=== PATIENT | male | born 1950 | race Caucasian/White ===

== ENCOUNTER 2020-07-09 02:39 | Outpatient (CLI) | payer OTHER, SELFPAY ==
[2020-07-16 22:58] LABS: DPYD Predicted Toxicity Risk Normal
== END 2020-07-09 02:40 | disposition home or self-care (01) ==
LOC: LBO 02:39
PROVIDERS: PCP Neuromusculoskeletal Medicine & OMM; Visit Provider Internal Medicine Hematology & Oncology
DX: C20 Malignant neoplasm of rectum (principal); T45.1X5A Adverse effect of antineoplastic and immunosuppressive drugs, initial encounter
CPT/HCPCS: 36415; 81232

== ENCOUNTER 2020-07-13 01:55 | Outpatient (CLI) | payer OTHER, SELFPAY ==
[2020-07-13 11:25] LABS: Abs Immature Grans 0.04 10^3/uL (0.0-0.06); Absolute Basophil Count 0.04 10^3/uL (0.0-0.2); Absolute Eosinophil Count 0.34 10^3/uL (0.0-0.7); Absolute Lymphocyte Count 2.02 10^3/uL (1.2-3.4); Absolute Monocyte Count 0.88 10^3/uL (0.1-0.8); Absolute Neutrophil Count 4.08 10^3/uL (1.2-6.7); Basophils % 0.5; Eosinophils % 4.6; HCT 41.6 % (40.0-50.0); HGB 13.8 g/dL (13.5-17.5); Immature Grans % 0.5; Lymphocytes % 27.3; MCH 29.1 pg (27.0-33.0); MCHC 33.2 % (32.0-36.0); MCV 87.8 fL (80-95); MPV 8.9 fL (8.0-11.0); Monocytes % 11.9; Neutrophils % 55.2; Nucleated RBC 0 %; Platelet Count 286 10^3/uL (130-400); RBC 4.74 10^6/uL (4.36-5.78); RDW 13.8 % (11.8-14.1); RDW-SD 44.5 fL
[2020-07-13 11:42] LABS: Albumin 3.3 g/dL (3.4-5.0); Alkaline Phosphatase 94 U/L (46-116); Anion Gap 9.7 mmol/L (3-11); BUN 23 mg/dL (7-18); Bilirubin, Total 0.5 mg/dL (0.2-1.0); CO2 23.3 mmol/L (21.0-32.0); CREATININE 1.3 mg/dL (0.70-1.30); Calcium 8.4 mg/dL (8.5-10.1); Chloride 107 mmol/L (98-107); Estimated GFR 54.26 (mL/min/1.73m2); Glucose 128 mg/dL (74-106); Potassium 4.2 mmol/L (3.5-5.1); Sodium 140 mmol/L (136-145); Total Protein 7.5 g/dL (6.4-8.2)
[2020-07-13 12:03] LABS: ALT 58 U/L (16-63); AST 27 U/L (15-37)
== END 2020-07-13 01:56 | disposition home or self-care (01) ==
LOC: LBO 01:59
PROVIDERS: PCP Neuromusculoskeletal Medicine & OMM; Visit Provider Internal Medicine Hematology & Oncology
DX: C20 Malignant neoplasm of rectum (principal)
CPT/HCPCS: 36415; 80053; 81232; 85025

== ENCOUNTER 2020-07-20 11:02 | Outpatient (CLI) | payer OTHER, SELFPAY ==
[2020-07-20 11:29] LABS: Abs Immature Grans 0.02 10^3/uL (0.0-0.06); Absolute Basophil Count 0.03 10^3/uL (0.0-0.2); Absolute Eosinophil Count 0.28 10^3/uL (0.0-0.7); Absolute Lymphocyte Count 1.71 10^3/uL (1.2-3.4); Absolute Monocyte Count 0.96 10^3/uL (0.1-0.8); Absolute Neutrophil Count 4.08 10^3/uL (1.2-6.7); Basophils % 0.4; HCT 40.1 % (40.0-50.0); Immature Grans % 0.3; Lymphocytes % 24.2; MCH 28.3 pg (27.0-33.0); MCHC 32.4 % (32.0-36.0); MCV 87.4 fL (80-95); MPV 9.4 fL (8.0-11.0); Monocytes % 13.6; Neutrophils % 57.5; Nucleated RBC 0 %; Platelet Count 243 10^3/uL (130-400); RBC 4.59 10^6/uL (4.36-5.78); RDW 13.7 % (11.8-14.1); RDW-SD 44.2 fL; WBC 7.08 10^3/uL (4.4-10.8)
[2020-07-20 11:39] LABS: ALT 46 U/L (16-63); AST 21 U/L (15-37); Albumin 3.5 g/dL (3.4-5.0); Alkaline Phosphatase 84 U/L (46-116); Anion Gap 9.2 mmol/L (3-11); BUN 27 mg/dL (7-18); Bilirubin, Total 0.6 mg/dL (0.2-1.0); CO2 24.8 mmol/L (21.0-32.0); CREATININE 1.1 mg/dL (0.70-1.30); Calcium 8.6 mg/dL (8.5-10.1); Chloride 104 mmol/L (98-107); Glucose 89 mg/dL (74-106); Potassium 4.5 mmol/L (3.5-5.1); Sodium 138 mmol/L (136-145); Total Protein 7.6 g/dL (6.4-8.2)
== END 2020-07-20 11:03 | disposition home or self-care (01) ==
LOC: LBO 11:03
PROVIDERS: PCP Neuromusculoskeletal Medicine & OMM; Visit Provider Internal Medicine Hematology & Oncology
DX: C20 Malignant neoplasm of rectum (principal)
CPT/HCPCS: 36415; 80053; 85025

== ENCOUNTER 2020-07-27 03:16 | Outpatient (CLI) | payer OTHER, SELFPAY ==
[2020-07-27 08:03] LABS: Abs Immature Grans 0.01 10^3/uL (0.0-0.06); Absolute Basophil Count 0.01 10^3/uL (0.0-0.2); Absolute Eosinophil Count 0.19 10^3/uL (0.0-0.7); Absolute Lymphocyte Count 0.73 10^3/uL (1.2-3.4); Absolute Neutrophil Count 2.77 10^3/uL (1.2-6.7); Basophils % 0.2; Eosinophils % 4.2; HCT 38.9 % (40.0-50.0); HGB 12.9 g/dL (13.5-17.5); Immature Grans % 0.2; Lymphocytes % 16.2; MCH 28.7 pg (27.0-33.0); MCHC 33.2 % (32.0-36.0); MCV 86.4 fL (80-95); Monocytes % 17.7; Neutrophils % 61.5; Nucleated RBC 0 %; Platelet Count 178 10^3/uL (130-400); RDW 13.7 % (11.8-14.1); RDW-SD 42.5 fL; WBC 4.51 10^3/uL (4.4-10.8)
[2020-07-27 08:15] LABS: ALT 37 U/L (16-63); AST 18 U/L (15-37); Albumin 3.5 g/dL (3.4-5.0); Alkaline Phosphatase 82 U/L (46-116); Anion Gap 8.8 mmol/L (3-11); BUN 27 mg/dL (7-18); CO2 26.2 mmol/L (21.0-32.0); CREATININE 1.4 mg/dL (0.70-1.30); Calcium 8.5 mg/dL (8.5-10.1); Chloride 104 mmol/L (98-107); Estimated GFR 49.82 (mL/min/1.73m2); Glucose 107 mg/dL (74-106); Potassium 4.4 mmol/L (3.5-5.1); Sodium 139 mmol/L (136-145); Total Protein 7.4 g/dL (6.4-8.2)
== END 2020-07-27 03:17 | disposition home or self-care (01) ==
LOC: LBO 03:16
PROVIDERS: PCP Neuromusculoskeletal Medicine & OMM; Visit Provider Internal Medicine Hematology & Oncology
DX: C20 Malignant neoplasm of rectum (principal)
CPT/HCPCS: 36415; 80053; 85025

== ENCOUNTER 2020-08-03 02:17 | Outpatient (CLI) | payer OTHER, SELFPAY ==
[2020-08-03 13:23] LABS: Abs Immature Grans 0.02 10^3/uL (0.0-0.06); Absolute Basophil Count 0.01 10^3/uL (0.0-0.2); Absolute Lymphocyte Count 0.47 10^3/uL (1.2-3.4); Absolute Monocyte Count 0.79 10^3/uL (0.1-0.8); Absolute Neutrophil Count 4.97 10^3/uL (1.2-6.7); Basophils % 0.2; Eosinophils % 4.6; HCT 38.2 % (40.0-50.0); HGB 12.8 g/dL (13.5-17.5); Immature Grans % 0.3; Lymphocytes % 7.2; MCHC 33.5 % (32.0-36.0); MCV 86.6 fL (80-95); Neutrophils % 75.7; Nucleated RBC 0 %; Platelet Count 145 10^3/uL (130-400); RBC 4.41 10^6/uL (4.36-5.78); RDW 14.3 % (11.8-14.1); RDW-SD 42.7 fL; WBC 6.56 10^3/uL (4.4-10.8)
[2020-08-03 15:06] LABS: ALT 35 U/L (16-63); AST 19 U/L (15-37); Albumin 3.8 g/dL (3.4-5.0); Alkaline Phosphatase 85 U/L (46-116); Anion Gap 8.9 mmol/L (3-11); BUN 21 mg/dL (7-18); Bilirubin, Total 1.2 mg/dL (0.2-1.0); CO2 25.1 mmol/L (21.0-32.0); CREATININE 1.1 mg/dL (0.70-1.30); Calcium 8.6 mg/dL (8.5-10.1); Chloride 105 mmol/L (98-107); Glucose 91 mg/dL (74-106); Sodium 139 mmol/L (136-145); Total Protein 7.3 g/dL (6.4-8.2)
== END 2020-08-03 02:18 | disposition home or self-care (01) ==
LOC: LBO 02:17
PROVIDERS: PCP Neuromusculoskeletal Medicine & OMM; Visit Provider Internal Medicine Hematology & Oncology
DX: C20 Malignant neoplasm of rectum (principal)
CPT/HCPCS: 36415; 80053; 85025

== ENCOUNTER 2020-08-10 01:05 | Outpatient (CLI) | payer OTHER, SELFPAY ==
[2020-08-10 13:08] LABS: Abs Immature Grans 0.03 10^3/uL (0.0-0.06); Absolute Basophil Count 0.02 10^3/uL (0.0-0.2); Absolute Lymphocyte Count 0.38 10^3/uL (1.2-3.4); Absolute Neutrophil Count 3.55 10^3/uL (1.2-6.7); Basophils % 0.4; Eosinophils % 11.2; HCT 35.5 % (40.0-50.0); HGB 12.2 g/dL (13.5-17.5); Immature Grans % 0.6; Lymphocytes % 7.1; MCHC 34.4 % (32.0-36.0); MCV 84.5 fL (80-95); MPV 8.8 fL (8.0-11.0); Monocytes % 14.9; Neutrophils % 65.8; Nucleated RBC 0 %; Platelet Count 167 10^3/uL (130-400); RDW 15.5 % (11.8-14.1); RDW-SD 45.2 fL; WBC 5.38 10^3/uL (4.4-10.8)
[2020-08-10 13:20] LABS: ALT 45 U/L (16-63); AST 26 U/L (15-37); Albumin 3.5 g/dL (3.4-5.0); Alkaline Phosphatase 79 U/L (46-116); Anion Gap 11.5 mmol/L (3-11); BUN 20 mg/dL (7-18); Bilirubin, Total 0.9 mg/dL (0.2-1.0); CO2 21.5 mmol/L (21.0-32.0); CREATININE 1.1 mg/dL (0.70-1.30); Calcium 8.4 mg/dL (8.5-10.1); Chloride 105 mmol/L (98-107); Glucose 96 mg/dL (74-106); Potassium 3.5 mmol/L (3.5-5.1); Sodium 138 mmol/L (136-145); Total Protein 7.2 g/dL (6.4-8.2)
== END 2020-08-10 01:06 | disposition home or self-care (01) ==
LOC: LBO 01:06
PROVIDERS: PCP Neuromusculoskeletal Medicine & OMM; Visit Provider Internal Medicine Hematology & Oncology
DX: C20 Malignant neoplasm of rectum (principal)
CPT/HCPCS: 36415; 80053; 85025

== ENCOUNTER 2020-08-17 03:52 | Outpatient (CLI) | payer OTHER, SELFPAY ==
[2020-08-17 13:25] LABS: Abs Immature Grans 0.01 10^3/uL (0.0-0.06); Absolute Basophil Count 0.02 10^3/uL (0.0-0.2); Absolute Eosinophil Count 0.45 10^3/uL (0.0-0.7); Absolute Lymphocyte Count 0.23 10^3/uL (1.2-3.4); Absolute Monocyte Count 1.45 10^3/uL (0.1-0.8); Absolute Neutrophil Count 3.11 10^3/uL (1.2-6.7); Basophils % 0.4; Eosinophils % 8.5; HCT 35.3 % (40.0-50.0); Immature Grans % 0.2; Lymphocytes % 4.4; MCH 29.6 pg (27.0-33.0); MCV 87.2 fL (80-95); MPV 8.4 fL (8.0-11.0); Monocytes % 27.5; Nucleated RBC 0 %; Platelet Count 192 10^3/uL (130-400); RBC 4.05 10^6/uL (4.36-5.78); RDW 15.9 % (11.8-14.1); RDW-SD 49.6 fL; WBC 5.27 10^3/uL (4.4-10.8)
[2020-08-17 13:46] LABS: ALT 27 U/L (16-63); AST 18 U/L (15-37); Albumin 3.2 g/dL (3.4-5.0); Alkaline Phosphatase 78 U/L (46-116); Anion Gap 11.9 mmol/L (3-11); BUN 19 mg/dL (7-18); Bilirubin, Total 1.2 mg/dL (0.2-1.0); CO2 21.1 mmol/L (21.0-32.0); CREATININE 1.2 mg/dL (0.70-1.30); Calcium 8.2 mg/dL (8.5-10.1); Chloride 102 mmol/L (98-107); Estimated GFR 59.51 (mL/min/1.73m2); Glucose 104 mg/dL (74-106); Potassium 3.4 mmol/L (3.5-5.1); Sodium 135 mmol/L (136-145); Total Protein 6.9 g/dL (6.4-8.2)
== END 2020-08-17 03:53 | disposition home or self-care (01) ==
LOC: LBO 03:52
PROVIDERS: PCP Neuromusculoskeletal Medicine & OMM; Visit Provider Internal Medicine Hematology & Oncology
DX: C20 Malignant neoplasm of rectum (principal)
CPT/HCPCS: 36415; 80053; 85025

== ENCOUNTER 2020-08-24 03:02 | Outpatient (CLI) | payer OTHER, SELFPAY ==
[2020-08-24 13:44] LABS: Abs Immature Grans 0.04 10^3/uL (0.0-0.06); Absolute Basophil Count 0.01 10^3/uL (0.0-0.2); Absolute Lymphocyte Count 0.36 10^3/uL (1.2-3.4); Absolute Monocyte Count 1.41 10^3/uL (0.1-0.8); Absolute Neutrophil Count 5.25 10^3/uL (1.2-6.7); Basophils % 0.1; HCT 32.9 % (40.0-50.0); HGB 11.2 g/dL (13.5-17.5); Immature Grans % 0.6; Lymphocytes % 5.1; MCH 29.9 pg (27.0-33.0); MCV 87.7 fL (80-95); MPV 8.6 fL (8.0-11.0); Monocytes % 19.9; Neutrophils % 74.3; Nucleated RBC 0 %; Platelet Count 251 10^3/uL (130-400); RBC 3.75 10^6/uL (4.36-5.78); RDW-SD 53.4 fL; WBC 7.07 10^3/uL (4.4-10.8)
[2020-08-24 13:58] LABS: ALT 54 U/L (16-63); AST 61 U/L (15-37); Alkaline Phosphatase 71 U/L (46-116); BUN 29 mg/dL (7-18); Bilirubin, Total 0.8 mg/dL (0.2-1.0); CREATININE 1.3 mg/dL (0.70-1.30); Calcium 8.6 mg/dL (8.5-10.1); Chloride 108 mmol/L (98-107); Estimated GFR 54.26 (mL/min/1.73m2); Glucose 88 mg/dL (74-106); Potassium 3.1 mmol/L (3.5-5.1); Sodium 142 mmol/L (136-145); Total Protein 6.6 g/dL (6.4-8.2)
== END 2020-08-24 03:03 | disposition home or self-care (01) ==
LOC: LBO 03:02
PROVIDERS: PCP Neuromusculoskeletal Medicine & OMM; Visit Provider Internal Medicine Hematology & Oncology
DX: C20 Malignant neoplasm of rectum (principal)
CPT/HCPCS: 36415; 80053; 85025

== ENCOUNTER 2020-08-31 08:24 | Outpatient (CLI) | payer OTHER, SELFPAY ==
[2020-08-31 09:22] LABS: Abs Immature Grans 0.01 10^3/uL (0.0-0.06); Absolute Basophil Count 0.02 10^3/uL (0.0-0.2); Absolute Lymphocyte Count 0.32 10^3/uL (1.2-3.4); Absolute Monocyte Count 0.82 10^3/uL (0.1-0.8); Absolute Neutrophil Count 3.85 10^3/uL (1.2-6.7); Basophils % 0.4; Eosinophils % 7.4; HCT 34.1 % (40.0-50.0); HGB 11.1 g/dL (13.5-17.5); Immature Grans % 0.2; Lymphocytes % 5.9; MCH 29.4 pg (27.0-33.0); MCHC 32.6 % (32.0-36.0); MCV 90.2 fL (80-95); Monocytes % 15.1; Nucleated RBC 0 %; Platelet Count 231 10^3/uL (130-400); RBC 3.78 10^6/uL (4.36-5.78); RDW 17.6 % (11.8-14.1); RDW-SD 57.6 fL; WBC 5.42 10^3/uL (4.4-10.8)
[2020-08-31 09:34] LABS: ALT 43 U/L (16-63); AST 27 U/L (15-37); Alkaline Phosphatase 83 U/L (46-116); Anion Gap 10.7 mmol/L (3-11); BUN 10 mg/dL (7-18); CO2 23.3 mmol/L (21.0-32.0); CREATININE 1.1 mg/dL (0.70-1.30); Calcium 8.4 mg/dL (8.5-10.1); Chloride 108 mmol/L (98-107); Glucose 87 mg/dL (74-106); Potassium 3.7 mmol/L (3.5-5.1); Sodium 142 mmol/L (136-145); Total Protein 6.6 g/dL (6.4-8.2)
== END 2020-08-31 08:25 | disposition home or self-care (01) ==
LOC: LBO 08:33
PROVIDERS: PCP Neuromusculoskeletal Medicine & OMM; Visit Provider Internal Medicine Hematology & Oncology
DX: C20 Malignant neoplasm of rectum (principal)
CPT/HCPCS: 36415; 80053; 85025

== ENCOUNTER 2020-09-07 11:46 | Outpatient (CLI) | payer OTHER, SELFPAY ==
[2020-09-07 11:23] LABS: Abs Immature Grans 0.02 10^3/uL (0.0-0.06); Absolute Basophil Count 0.03 10^3/uL (0.0-0.2); Absolute Eosinophil Count 0.09 10^3/uL (0.0-0.7); Absolute Lymphocyte Count 0.46 10^3/uL (1.2-3.4); Absolute Monocyte Count 0.89 10^3/uL (0.1-0.8); Basophils % 0.6; Eosinophils % 1.9; HCT 34.7 % (40.0-50.0); HGB 11.3 g/dL (13.5-17.5); Immature Grans % 0.4; Lymphocytes % 9.8; MCH 29.4 pg (27.0-33.0); MCHC 32.6 % (32.0-36.0); MCV 90.4 fL (80-95); Neutrophils % 68.3; Nucleated RBC 0 %; Platelet Count 224 10^3/uL (130-400); RBC 3.84 10^6/uL (4.36-5.78); RDW 17.3 % (11.8-14.1); RDW-SD 57.1 fL; WBC 4.69 10^3/uL (4.4-10.8)
[2020-09-07 11:36] LABS: ALT 52 U/L (16-63); AST 31 U/L (15-37); Albumin 2.9 g/dL (3.4-5.0); Alkaline Phosphatase 92 U/L (46-116); Anion Gap 10.6 mmol/L (3-11); BUN 17 mg/dL (7-18); Bilirubin, Total 0.8 mg/dL (0.2-1.0); CO2 23.4 mmol/L (21.0-32.0); CREATININE 1.1 mg/dL (0.70-1.30); Calcium 8.1 mg/dL (8.5-10.1); Chloride 109 mmol/L (98-107); Glucose 101 mg/dL (74-106); Potassium 3.2 mmol/L (3.5-5.1); Sodium 143 mmol/L (136-145); Total Protein 6.3 g/dL (6.4-8.2)
== END 2020-09-07 11:47 | disposition home or self-care (01) ==
LOC: LBO 11:51
PROVIDERS: PCP Neuromusculoskeletal Medicine & OMM; Visit Provider Internal Medicine Hematology & Oncology
DX: C20 Malignant neoplasm of rectum (principal)
CPT/HCPCS: 36415; 80053; 85025

== ENCOUNTER 2020-09-14 01:53 | Outpatient (CLI) | payer OTHER, SELFPAY ==
[2020-09-14 11:33] LABS: Abs Immature Grans 0.03 10^3/uL (0.0-0.06); Absolute Eosinophil Count 0.05 10^3/uL (0.0-0.7); Absolute Lymphocyte Count 0.16 10^3/uL (1.2-3.4); Absolute Monocyte Count 0.29 10^3/uL (0.1-0.8); Absolute Neutrophil Count 5.31 10^3/uL (1.2-6.7); Eosinophils % 0.9; HCT 36.5 % (40.0-50.0); HGB 11.9 g/dL (13.5-17.5); Immature Grans % 0.5; Lymphocytes % 2.7; MCH 30.1 pg (27.0-33.0); MCHC 32.6 % (32.0-36.0); MCV 92.2 fL (80-95); MPV 9.6 fL (8.0-11.0); Neutrophils % 90.9; Nucleated RBC 0 %; Platelet Count 246 10^3/uL (130-400); RBC 3.96 10^6/uL (4.36-5.78); RDW 17.1 % (11.8-14.1); RDW-SD 57.6 fL; WBC 5.84 10^3/uL (4.4-10.8)
[2020-09-14 11:41] LABS: ALT 38 U/L (16-63); AST 13 U/L (15-37); Albumin 3.1 g/dL (3.4-5.0); Alkaline Phosphatase 113 U/L (46-116); Anion Gap 10.3 mmol/L (3-11); BUN 8 mg/dL (7-18); CO2 25.7 mmol/L (21.0-32.0); CREATININE 1.1 mg/dL (0.70-1.30); Calcium 8.6 mg/dL (8.5-10.1); Chloride 105 mmol/L (98-107); Glucose 132 mg/dL (74-106); Potassium 4.3 mmol/L (3.5-5.1); Sodium 141 mmol/L (136-145); Total Protein 6.8 g/dL (6.4-8.2)
== END 2020-09-14 01:54 | disposition home or self-care (01) ==
LOC: LBO 01:53
PROVIDERS: PCP Neuromusculoskeletal Medicine & OMM; Visit Provider Internal Medicine Hematology & Oncology
DX: C20 Malignant neoplasm of rectum (principal)
CPT/HCPCS: 36415; 80053; 85025

== ENCOUNTER 2020-10-29 02:03 | Outpatient (RCR) | payer OTHER, SELFPAY ==
[2020-10-29] MEDS: Normal Saline Flush 10 ML SYR IVP (08:49)
[2020-10-29] MEDS: Heparin 500 UNITS/5 ML SYRINGE IV (08:49)
[2020-10-29 09:16] LABS: Abs Immature Grans 0.02 10^3/uL (0.0-0.06); Absolute Basophil Count 0.02 10^3/uL (0.0-0.2); Absolute Eosinophil Count 0.52 10^3/uL (0.0-0.7); Absolute Lymphocyte Count 0.43 10^3/uL (1.2-3.4); Absolute Monocyte Count 0.75 10^3/uL (0.1-0.8); Absolute Neutrophil Count 3.06 10^3/uL (1.2-6.7); Basophils % 0.4; Eosinophils % 10.8; HCT 37.7 % (40.0-50.0); Immature Grans % 0.4; MCH 29.1 pg (27.0-33.0); MCHC 31.8 % (32.0-36.0); MCV 91.5 fL (80-95); MPV 9.9 fL (8.0-11.0); Monocytes % 15.6; Neutrophils % 63.8; Nucleated RBC 0 %; Platelet Count 211 10^3/uL (130-400); RBC 4.12 10^6/uL (4.36-5.78); RDW 14.5 % (11.8-14.1); RDW-SD 49.1 fL
[2020-10-29 09:29] LABS: ALT 21 U/L (16-63); AST 12 U/L (15-37); Albumin 3.4 g/dL (3.4-5.0); Alkaline Phosphatase 94 U/L (46-116); Anion Gap 8.7 mmol/L (3-11); BUN 16 mg/dL (7-18); Bilirubin, Total 0.8 mg/dL (0.2-1.0); CO2 25.3 mmol/L (21.0-32.0); CREATININE 1.1 mg/dL (0.70-1.30); Calcium 8.4 mg/dL (8.5-10.1); Chloride 108 mmol/L (98-107); Glucose 109 mg/dL (74-106); Potassium 3.7 mmol/L (3.5-5.1); Sodium 142 mmol/L (136-145); Total Protein 6.9 g/dL (6.4-8.2)
[2020-10-30 15:37] LABS: CEA <2.0 ng/mL (See Note)
== END 2020-11-06 23:59 | disposition home or self-care (01) ==
LOC: INF 02:03
PROVIDERS: PCP Neuromusculoskeletal Medicine & OMM; Visit Provider Internal Medicine Hematology & Oncology
DX: C20 Malignant neoplasm of rectum (principal); Z45.2 Encounter for adjustment and management of vascular access device
CPT/HCPCS: 36591; 80053; 82378; 85025

== ENCOUNTER 2020-12-04 02:46 | Outpatient (RCR) | payer OTHER, SELFPAY ==
[2020-11-13] MEDS: Normal Saline Flush 10 ML SYR IVP (08:39)
[2020-11-13 09:09] LABS: Abs Immature Grans 0.02 10^3/uL (0.0-0.06); Absolute Basophil Count 0.01 10^3/uL (0.0-0.2); Absolute Monocyte Count 0.58 10^3/uL (0.1-0.8); Absolute Neutrophil Count 3.27 10^3/uL (1.2-6.7); Basophils % 0.2; Eosinophils % 10.7; HGB 11.7 g/dL (13.5-17.5); Immature Grans % 0.4; Lymphocytes % 6.4; MCHC 31.6 % (32.0-36.0); MCV 91.8 fL (80-95); MPV 9.6 fL (8.0-11.0); Monocytes % 12.4; Neutrophils % 69.9; Nucleated RBC 0 %; Platelet Count 176 10^3/uL (130-400); RBC 4.03 10^6/uL (4.36-5.78); RDW 13.4 % (11.8-14.1); RDW-SD 45.4 fL; WBC 4.68 10^3/uL (4.4-10.8)
[2020-11-13 09:24] LABS: ALT 22 U/L (16-63); AST 15 U/L (15-37); Albumin 3.4 g/dL (3.4-5.0); Alkaline Phosphatase 95 U/L (46-116); Anion Gap 7.1 mmol/L (3-11); BUN 11 mg/dL (7-18); Bilirubin, Total 0.9 mg/dL (0.2-1.0); CO2 27.9 mmol/L (21.0-32.0); Calcium 8.5 mg/dL (8.5-10.1); Chloride 110 mmol/L (98-107); Glucose 87 mg/dL (74-106); Potassium 3.6 mmol/L (3.5-5.1); Sodium 145 mmol/L (136-145)
[2020-11-13 17:33] LABS: CEA <2.0 ng/mL (See Note)
[2020-11-26 09:47] LABS: Abs Immature Grans 0.03 10^3/uL (0.0-0.06); Absolute Basophil Count 0.02 10^3/uL (0.0-0.2); Absolute Eosinophil Count 0.12 10^3/uL (0.0-0.7); Absolute Monocyte Count 1.54 10^3/uL (0.1-0.8); Absolute Neutrophil Count 5.21 10^3/uL (1.2-6.7); Basophils % 0.3; Eosinophils % 1.6; HCT 35.4 % (40.0-50.0); HGB 11.5 g/dL (13.5-17.5); Immature Grans % 0.4; MCH 28.7 pg (27.0-33.0); MCHC 32.5 % (32.0-36.0); MCV 88.3 fL (80-95); MPV 9.7 fL (8.0-11.0); Monocytes % 20.5; Neutrophils % 69.2; Nucleated RBC 0 %; Platelet Count 200 10^3/uL (130-400); RBC 4.01 10^6/uL (4.36-5.78); RDW 13.4 % (11.8-14.1); RDW-SD 42.9 fL; WBC 7.52 10^3/uL (4.4-10.8)
[2020-11-26 09:59] LABS: ALT 22 U/L (16-63); AST 14 U/L (15-37); Albumin 3.5 g/dL (3.4-5.0); Alkaline Phosphatase 87 U/L (46-116); Anion Gap 10.3 mmol/L (3-11); BUN 15 mg/dL (7-18); Bilirubin, Total 0.7 mg/dL (0.2-1.0); CO2 24.7 mmol/L (21.0-32.0); CREATININE 1.1 mg/dL (0.70-1.30); Calcium 8.4 mg/dL (8.5-10.1); Chloride 109 mmol/L (98-107); Glucose 88 mg/dL (74-106); Potassium 3.5 mmol/L (3.5-5.1); Sodium 144 mmol/L (136-145)
[2020-11-26 10:19] LABS: Diff Comment Diff Reviewed; RBC Morphology Normal
[2020-11-26 17:24] LABS: CEA <2.0 ng/mL (See Note)
[2020-12-04] MEDS: Normal Saline Flush 10 ML SYR IVP (08:35)
[2020-12-04 08:50] LABS: Abs Immature Grans 0.02 10^3/uL (0.0-0.06); Absolute Basophil Count 0.02 10^3/uL (0.0-0.2); Absolute Eosinophil Count 0.34 10^3/uL (0.0-0.7); Absolute Lymphocyte Count 0.44 10^3/uL (1.2-3.4); Absolute Monocyte Count 0.66 10^3/uL (0.1-0.8); Absolute Neutrophil Count 2.51 10^3/uL (1.2-6.7); Basophils % 0.5; Eosinophils % 8.5; HCT 37.8 % (40.0-50.0); HGB 11.9 g/dL (13.5-17.5); Immature Grans % 0.5; MCH 28.7 pg (27.0-33.0); MCHC 31.5 % (32.0-36.0); MCV 91.1 fL (80-95); Monocytes % 16.5; Nucleated RBC 0 %; Platelet Count 205 10^3/uL (130-400); RBC 4.15 10^6/uL (4.36-5.78); RDW 13.3 % (11.8-14.1); RDW-SD 44.1 fL; WBC 3.99 10^3/uL (4.4-10.8)
[2020-12-04 09:01] LABS: ALT 23 U/L (16-63); AST 13 U/L (15-37); Albumin 3.2 g/dL (3.4-5.0); Alkaline Phosphatase 105 U/L (46-116); BUN 12 mg/dL (7-18); Bilirubin, Total 0.5 mg/dL (0.2-1.0); CREATININE 1.1 mg/dL (0.70-1.30); Calcium 8.4 mg/dL (8.5-10.1); Chloride 107 mmol/L (98-107); Glucose 104 mg/dL (74-106); Potassium 4.2 mmol/L (3.5-5.1); Sodium 142 mmol/L (136-145); Total Protein 6.9 g/dL (6.4-8.2)
[2020-12-04 17:26] LABS: CEA <2.0 ng/mL (See Note)
== END 2020-12-06 23:59 | disposition home or self-care (01) ==
LOC: INF 02:46
PROVIDERS: PCP Neuromusculoskeletal Medicine & OMM; Visit Provider Internal Medicine Hematology & Oncology
DX: C20 Malignant neoplasm of rectum (principal); Z45.2 Encounter for adjustment and management of vascular access device
CPT/HCPCS: 36415; 36591; 80053; 82378; 85025

== ENCOUNTER 2021-01-01 01:06 | Outpatient (RCR) | payer OTHER, SELFPAY ==
[2020-12-18] MEDS: Normal Saline Flush 10 ML SYR IVP (08:53)
[2020-12-18 09:01] LABS: Abs Immature Grans 0.01 10^3/uL (0.0-0.06); Absolute Basophil Count 0.02 10^3/uL (0.0-0.2); Absolute Eosinophil Count 0.49 10^3/uL (0.0-0.7); Absolute Lymphocyte Count 0.41 10^3/uL (1.2-3.4); Absolute Monocyte Count 0.62 10^3/uL (0.1-0.8); Absolute Neutrophil Count 3.71 10^3/uL (1.2-6.7); Basophils % 0.4; Eosinophils % 9.3; HCT 37.4 % (40.0-50.0); HGB 11.9 g/dL (13.5-17.5); Immature Grans % 0.2; Lymphocytes % 7.8; MCH 28.5 pg (27.0-33.0); MCHC 31.8 % (32.0-36.0); MCV 89.5 fL (80-95); MPV 9.3 fL (8.0-11.0); Monocytes % 11.8; Neutrophils % 70.5; Nucleated RBC 0 %; Platelet Count 156 10^3/uL (130-400); RBC 4.18 10^6/uL (4.36-5.78); RDW 13.5 % (11.8-14.1); RDW-SD 44.1 fL; WBC 5.26 10^3/uL (4.4-10.8)
[2020-12-18 09:24] LABS: ALT 30 U/L (16-63); AST 17 U/L (15-37); Albumin 3.3 g/dL (3.4-5.0); Alkaline Phosphatase 101 U/L (46-116); Anion Gap 9.8 mmol/L (3-11); BUN 17 mg/dL (7-18); Bilirubin, Total 0.6 mg/dL (0.2-1.0); CO2 25.2 mmol/L (21.0-32.0); CREATININE 1.4 mg/dL (0.70-1.30); Calcium 8.4 mg/dL (8.5-10.1); Chloride 106 mmol/L (98-107); Estimated GFR 49.82 (mL/min/1.73m2); Glucose 104 mg/dL (74-106); Sodium 141 mmol/L (136-145); Total Protein 6.8 g/dL (6.4-8.2)
[2020-12-28 09:18] LABS: Abs Immature Grans 0.03 10^3/uL (0.0-0.06); Absolute Basophil Count 0.01 10^3/uL (0.0-0.2); Absolute Eosinophil Count 0.02 10^3/uL (0.0-0.7); Absolute Lymphocyte Count 0.23 10^3/uL (1.2-3.4); Absolute Neutrophil Count 2.31 10^3/uL (1.2-6.7); Basophils % 0.4; Eosinophils % 0.7; HCT 38.6 % (40.0-50.0); HGB 12.3 g/dL (13.5-17.5); Immature Grans % 1.1; Lymphocytes % 8.2; MCH 28.1 pg (27.0-33.0); MCHC 31.9 % (32.0-36.0); MCV 88.3 fL (80-95); MPV 9.1 fL (8.0-11.0); Monocytes % 7.1; Neutrophils % 82.5; Nucleated RBC 0 %; Platelet Count 185 10^3/uL (130-400); RBC 4.37 10^6/uL (4.36-5.78); RDW 13.7 % (11.8-14.1); RDW-SD 43.8 fL
[2020-12-28 09:32] LABS: ALT 25 U/L (16-63); AST 14 U/L (15-37); Albumin 3.5 g/dL (3.4-5.0); Alkaline Phosphatase 109 U/L (46-116); Anion Gap 8.7 mmol/L (3-11); BUN 10 mg/dL (7-18); Bilirubin, Total 0.5 mg/dL (0.2-1.0); CO2 25.3 mmol/L (21.0-32.0); CREATININE 1.1 mg/dL (0.70-1.30); Calcium 8.7 mg/dL (8.5-10.1); Chloride 106 mmol/L (98-107); Glucose 126 mg/dL (74-106); Potassium 4.5 mmol/L (3.5-5.1); Sodium 140 mmol/L (136-145); Total Protein 7.3 g/dL (6.4-8.2)
[2020-12-28 17:11] LABS: CEA 0.9 ng/mL (See Note)
== END 2021-01-06 23:59 | disposition home or self-care (01) ==
LOC: INF 01:06
PROVIDERS: PCP Neuromusculoskeletal Medicine & OMM; Visit Provider Internal Medicine Hematology & Oncology
DX: C20 Malignant neoplasm of rectum (principal); Z45.2 Encounter for adjustment and management of vascular access device
CPT/HCPCS: 36415; 36591; 80053; 82378; 85025

== ENCOUNTER 2021-02-05 02:14 | Outpatient (RCR) | payer MEDICARE, SELFPAY ==
[2021-01-15] MEDS: Normal Saline Flush 10 ML SYR IVP (08:10)
[2021-01-15 08:46] LABS: HCT 33.7 % (40.0-50.0); MCH 28.6 pg (27.0-33.0); MCHC 32.6 % (32.0-36.0); MCV 87.8 fL (80-95); RBC 3.84 10^6/uL (4.36-5.78); RDW-SD 46.6 fL; WBC 3.88 10^3/uL (4.4-10.8)
[2021-01-15 08:47] LABS: Abs Immature Grans 0.01 10^3/uL (0.0-0.06); Absolute Basophil Count 0.02 10^3/uL (0.0-0.2); Absolute Eosinophil Count 0.26 10^3/uL (0.0-0.7); Absolute Lymphocyte Count 0.24 10^3/uL (1.2-3.4); Absolute Monocyte Count 0.57 10^3/uL (0.1-0.8); Absolute Neutrophil Count 2.78 10^3/uL (1.2-6.7); Basophils % 0.5; Eosinophils % 6.7; Immature Grans % 0.3; Lymphocytes % 6.2; MPV 9.8 fL (8.0-11.0); Monocytes % 14.7; Neutrophils % 71.6; Platelet Count 126 10^3/uL (130-400); RDW 14.7 % (11.8-14.1)
[2021-01-15 08:57] LABS: BUN 13 mg/dL (7-18); Calcium 8.2 mg/dL (8.5-10.1); Glucose 115 mg/dL (74-106)
[2021-01-15 08:58] LABS: ALT 26 U/L (16-63); AST 18 U/L (15-37); Alkaline Phosphatase 94 U/L (46-116); Anion Gap 12.3 mmol/L (3-11); Bilirubin, Total 0.9 mg/dL (0.2-1.0); CO2 24.7 mmol/L (21.0-32.0); CREATININE 1.1 mg/dL (0.70-1.30); Chloride 108 mmol/L (98-107); Potassium 3.3 mmol/L (3.5-5.1); Sodium 145 mmol/L (136-145); Total Protein 6.4 g/dL (6.4-8.2)
[2021-01-15 18:04] LABS: CEA 0.7 ng/mL (See Note)
[2021-02-01 13:23] LABS: Abs Immature Grans 0.01 10^3/uL (0.0-0.06); Absolute Basophil Count 0.02 10^3/uL (0.0-0.2); Absolute Eosinophil Count 0.13 10^3/uL (0.0-0.7); Absolute Monocyte Count 1.06 10^3/uL (0.1-0.8); Absolute Neutrophil Count 2.93 10^3/uL (1.2-6.7); Basophils % 0.4; Eosinophils % 2.7; HGB 10.9 g/dL (13.5-17.5); Immature Grans % 0.2; Lymphocytes % 12.6; MCH 28.2 pg (27.0-33.0); MCHC 32.1 % (32.0-36.0); MCV 88.1 fL (80-95); MPV 9.7 fL (8.0-11.0); Monocytes % 22.3; Neutrophils % 61.8; Nucleated RBC 0 %; Platelet Count 190 10^3/uL (130-400); RBC 3.86 10^6/uL (4.36-5.78); RDW 15.6 % (11.8-14.1); RDW-SD 49.9 fL; WBC 4.75 10^3/uL (4.4-10.8)
[2021-02-01 13:40] LABS: ALT 32 U/L (16-63); AST 24 U/L (15-37); Albumin 3.1 g/dL (3.4-5.0); Alkaline Phosphatase 96 U/L (46-116); Anion Gap 8.2 mmol/L (3-11); BUN 16 mg/dL (7-18); Bilirubin, Total 0.7 mg/dL (0.2-1.0); CO2 28.8 mmol/L (21.0-32.0); CREATININE 1.1 mg/dL (0.70-1.30); Calcium 8.3 mg/dL (8.5-10.1); Chloride 106 mmol/L (98-107); Glucose 80 mg/dL (74-106); Sodium 143 mmol/L (136-145); Total Protein 6.5 g/dL (6.4-8.2)
[2021-02-01 13:46] LABS: Potassium 2.9 mmol/L (3.5-5.1)
[2021-02-01 22:58] LABS: CEA 0.8 ng/mL (See Note)
[2021-02-05] MEDS: Normal Saline Flush 10 ML SYR IVP (07:19)
[2021-02-05 07:45] LABS: ALT 35 U/L (16-63); AST 17 U/L (15-37); Albumin 3.2 g/dL (3.4-5.0); Alkaline Phosphatase 115 U/L (46-116); Anion Gap 5.9 mmol/L (3-11); BUN 10 mg/dL (7-18); Bilirubin, Total 0.9 mg/dL (0.2-1.0); CO2 29.1 mmol/L (21.0-32.0); CREATININE 1.1 mg/dL (0.70-1.30); Calcium 8.4 mg/dL (8.5-10.1); Chloride 106 mmol/L (98-107); Glucose 86 mg/dL (74-106); Potassium 4.3 mmol/L (3.5-5.1); Sodium 141 mmol/L (136-145); Total Protein 6.9 g/dL (6.4-8.2)
== END 2021-02-05 23:59 | disposition home or self-care (01) ==
LOC: INF 02:14
PROVIDERS: PCP Neuromusculoskeletal Medicine & OMM; Visit Provider Internal Medicine Hematology & Oncology
DX: C20 Malignant neoplasm of rectum (principal); Z45.2 Encounter for adjustment and management of vascular access device
CPT/HCPCS: 36415; 36591; 80053; 82378; 85025

== ENCOUNTER 2021-02-15 00:41 | Outpatient (RCR) | payer MEDICARE, SELFPAY ==
[2021-02-15 12:56] LABS: Abs Immature Grans 0.01 10^3/uL (0.0-0.06); Absolute Basophil Count 0.01 10^3/uL (0.0-0.2); Absolute Eosinophil Count 0.17 10^3/uL (0.0-0.7); Absolute Lymphocyte Count 0.44 10^3/uL (1.2-3.4); Absolute Monocyte Count 0.72 10^3/uL (0.1-0.8); Absolute Neutrophil Count 2.41 10^3/uL (1.2-6.7); Basophils % 0.3; Eosinophils % 4.5; HCT 37.6 % (40.0-50.0); HGB 11.9 g/dL (13.5-17.5); Immature Grans % 0.3; Lymphocytes % 11.7; MCH 28.5 pg (27.0-33.0); MCHC 31.6 % (32.0-36.0); MCV 90.2 fL (80-95); MPV 9.3 fL (8.0-11.0); Monocytes % 19.1; Neutrophils % 64.1; Nucleated RBC 0 %; Platelet Count 155 10^3/uL (130-400); RBC 4.17 10^6/uL (4.36-5.78); RDW 15.6 % (11.8-14.1); RDW-SD 50.5 fL; WBC 3.76 10^3/uL (4.4-10.8)
[2021-02-15 13:11] LABS: ALT 26 U/L (16-63); AST 19 U/L (15-37); Albumin 3.4 g/dL (3.4-5.0); Alkaline Phosphatase 115 U/L (46-116); Anion Gap 7.5 mmol/L (3-11); BUN 14 mg/dL (7-18); Bilirubin, Total 0.9 mg/dL (0.2-1.0); CO2 26.5 mmol/L (21.0-32.0); Calcium 8.5 mg/dL (8.5-10.1); Chloride 107 mmol/L (98-107); Glucose 97 mg/dL (74-106); Potassium 3.9 mmol/L (3.5-5.1); Sodium 141 mmol/L (136-145)
[2021-02-15 23:14] LABS: CEA 0.6 ng/mL (See Note)
== END 2021-03-08 23:59 | disposition home or self-care (01) ==
LOC: INF 00:41
PROVIDERS: PCP Neuromusculoskeletal Medicine & OMM; Visit Provider Internal Medicine Hematology & Oncology
DX: C20 Malignant neoplasm of rectum (principal)
CPT/HCPCS: 36415; 80053; 82378; 85025

== ENCOUNTER 2021-04-19 07:34 | Outpatient (RCR) | payer MEDICARE, SELFPAY ==
[2021-04-19] MEDS: Normal Saline Flush 10 ML SYR IVP (07:53)
[2021-04-19] MEDS: Heparin 500 UNITS/5 ML SYRINGE (07:54)
[2021-04-19 07:58] LABS: Abs Immature Grans 0.02 10^3/uL (0.0-0.06); Absolute Basophil Count 0.02 10^3/uL (0.0-0.2); Absolute Eosinophil Count 0.11 10^3/uL (0.0-0.7); Absolute Lymphocyte Count 0.39 10^3/uL (1.2-3.4); Absolute Monocyte Count 0.62 10^3/uL (0.1-0.8); Absolute Neutrophil Count 3.45 10^3/uL (1.2-6.7); Basophils % 0.4; Eosinophils % 2.4; HCT 37.2 % (40.0-50.0); HGB 11.6 g/dL (13.5-17.5); Immature Grans % 0.4; Lymphocytes % 8.5; MCH 28.9 pg (27.0-33.0); MCHC 31.2 % (32.0-36.0); MCV 92.5 fL (80-95); MPV 9.9 fL (8.0-11.0); Monocytes % 13.4; Neutrophils % 74.9; Nucleated RBC 0 %; Platelet Count 203 10^3/uL (130-400); RBC 4.02 10^6/uL (4.36-5.78); RDW 14.6 % (11.8-14.1); RDW-SD 49.6 fL; WBC 4.61 10^3/uL (4.4-10.8)
[2021-04-19 08:01] LABS: ALT 30 U/L (16-63); AST 25 U/L (15-37); Albumin 3.3 g/dL (3.4-5.0); Alkaline Phosphatase 126 U/L (46-116); BUN 15 mg/dL (7-18); Bilirubin, Total 0.5 mg/dL (0.2-1.0); CREATININE 1.1 mg/dL (0.70-1.30); Calcium 8.3 mg/dL (8.5-10.1); Chloride 106 mmol/L (98-107); Glucose 151 mg/dL (74-106); Sodium 140 mmol/L (136-145); Total Protein 6.8 g/dL (6.4-8.2)
[2021-04-19 09:48] LABS: Vitamin B12 328 pg/mL (193-986)
[2021-04-19 17:25] LABS: CEA <0.5 ng/mL (See Note)
== END 2021-05-06 23:59 | disposition home or self-care (01) ==
LOC: INF 07:34
PROVIDERS: PCP Neuromusculoskeletal Medicine & OMM; Visit Provider Internal Medicine Hematology & Oncology
DX: C20 Malignant neoplasm of rectum (principal); Z45.2 Encounter for adjustment and management of vascular access device
CPT/HCPCS: 36591; 80053; 82378; 82607; 85025

== ENCOUNTER 2021-07-05 01:13 | Outpatient (RCR) | payer MEDICARE, SELFPAY ==
[2021-07-05] MEDS: Heparin 500 UNITS/5 ML SYRINGE IV (14:20)
[2021-07-05] MEDS: Normal Saline Flush 10 ML SYR IVP (14:20)
[2021-07-05 14:31] LABS: Abs Immature Grans 0.02 10^3/uL (0.0-0.06); Absolute Basophil Count 0.03 10^3/uL (0.0-0.2); Absolute Eosinophil Count 0.33 10^3/uL (0.0-0.7); Absolute Lymphocyte Count 0.82 10^3/uL (1.2-3.4); Absolute Monocyte Count 0.87 10^3/uL (0.1-0.8); Absolute Neutrophil Count 2.97 10^3/uL (1.2-6.7); Basophils % 0.6; Eosinophils % 6.5; HGB 12.6 g/dL (13.5-17.5); Immature Grans % 0.4; Lymphocytes % 16.3; MCH 28.3 pg (27.0-33.0); MCHC 32.3 % (32.0-36.0); MCV 88 fL (80-95); MPV 8.9 fL (8.0-11.0); Monocytes % 17.3; Neutrophils % 58.9; Platelet Count 218 10^3/uL (130-400); RBC 4.45 10^6/uL (4.36-5.78); RDW 13.6 % (11.8-14.1); RDW-SD 43.8 fL; WBC 5.04 10^3/uL (4.4-10.8)
[2021-07-05 14:41] LABS: ALT 39 U/L (16-63); AST 26 U/L (15-37); Albumin 3.5 g/dL (3.4-5.0); Alkaline Phosphatase 142 U/L (46-116); Anion Gap 6.3 mmol/L (3-11); BUN 14 mg/dL (7-18); Bilirubin, Total 0.6 mg/dL (0.2-1.0); CO2 28.7 mmol/L (21.0-32.0); Calcium 8.5 mg/dL (8.5-10.1); Chloride 103 mmol/L (98-107); Glucose 93 mg/dL (74-106); Potassium 4.2 mmol/L (3.5-5.1); Sodium 138 mmol/L (136-145); Total Protein 7.3 g/dL (6.4-8.2)
[2021-07-05 22:31] LABS: CEA 0.5 ng/mL (See Note)
== END 2021-07-06 23:59 | disposition home or self-care (01) ==
LOC: INF 01:13
PROVIDERS: PCP Neuromusculoskeletal Medicine & OMM; Visit Provider Internal Medicine Hematology & Oncology
DX: C20 Malignant neoplasm of rectum (principal); Z45.2 Encounter for adjustment and management of vascular access device
CPT/HCPCS: 36591; 80053; 82378; 85025

== ENCOUNTER 2021-09-20 01:07 | Outpatient (RCR) | payer MEDICARE, SELFPAY ==
[2021-09-20] MEDS: Normal Saline Flush 10 ML SYR IVP (12:42)
[2021-09-20] MEDS: Heparin 500 UNITS/5 ML SYRINGE IV (12:42)
[2021-09-20 12:50] LABS: Abs Immature Grans 0.02 10^3/uL (0.0-0.06); Absolute Basophil Count 0.03 10^3/uL (0.0-0.2); Absolute Eosinophil Count 0.21 10^3/uL (0.0-0.7); Absolute Lymphocyte Count 0.72 10^3/uL (1.2-3.4); Absolute Monocyte Count 0.91 10^3/uL (0.1-0.8); Absolute Neutrophil Count 3.59 10^3/uL (1.2-6.7); Basophils % 0.5; Eosinophils % 3.8; HCT 39.9 % (40.0-50.0); Immature Grans % 0.4; Lymphocytes % 13.1; MCH 28.9 pg (27.0-33.0); MCHC 32.6 % (32.0-36.0); MCV 89 fL (80-95); MPV 9.1 fL (8.0-11.0); Monocytes % 16.6; Neutrophils % 65.6; Platelet Count 206 10^3/uL (130-400); RDW 14.8 % (11.8-14.1); RDW-SD 48.8 fL; WBC 5.48 10^3/uL (4.4-10.8)
[2021-09-20 13:09] LABS: ALT 38 U/L (16-63); AST 19 U/L (15-37); Albumin 3.3 g/dL (3.4-5.0); Alkaline Phosphatase 126 U/L (46-116); Anion Gap 6.9 mmol/L (3-11); BUN 20 mg/dL (7-18); Bilirubin, Total 0.6 mg/dL (0.2-1.0); CO2 27.1 mmol/L (21.0-32.0); Calcium 8.3 mg/dL (8.5-10.1); Chloride 105 mmol/L (98-107); Glucose 97 mg/dL (74-106); Potassium 4.3 mmol/L (3.5-5.1); Sodium 139 mmol/L (136-145); Total Protein 6.8 g/dL (6.4-8.2)
[2021-09-20 23:31] LABS: CEA <0.5 ng/mL (See Note)
== END 2021-10-06 23:59 | disposition home or self-care (01) ==
LOC: INF 01:07
PROVIDERS: PCP Neuromusculoskeletal Medicine & OMM; Visit Provider Internal Medicine Hematology & Oncology
DX: C20 Malignant neoplasm of rectum (principal); Z45.2 Encounter for adjustment and management of vascular access device
CPT/HCPCS: 36591; 80053; 82378; 85025

== ENCOUNTER 2022-07-14 01:25 | Outpatient (CLI) | payer MEDICARE, SELFPAY ==
[2022-07-14] MEDS: Barium Sulfate 2% W/V-Berry Smoothie 450 ML BTL PO (09:07)
[2022-07-14 09:49] LABS: Abs Immature Grans 0.04 10^3/uL (0.0-0.06); Absolute Basophil Count 0.03 10^3/uL (0.0-0.2); Absolute Eosinophil Count 0.22 10^3/uL (0.0-0.7); Absolute Lymphocyte Count 1.11 10^3/uL (1.2-3.4); Absolute Monocyte Count 0.91 10^3/uL (0.1-0.8); Absolute Neutrophil Count 4.45 10^3/uL (1.2-6.7); Basophils % 0.4; Eosinophils % 3.3; HCT 50.3 % (40.0-50.0); HGB 16.7 g/dL (13.5-17.5); Immature Grans % 0.6; Lymphocytes % 16.4; MCH 29.9 pg (27.0-33.0); MCHC 33.2 % (32.0-36.0); MCV 90 fL (80-95); Monocytes % 13.5; Neutrophils % 65.8; Platelet Count 252 10^3/uL (130-400); RBC 5.58 10^6/uL (4.36-5.78); RDW 14.4 % (11.8-14.1); RDW-SD 47.9 fL; WBC 6.76 10^3/uL (4.4-10.8)
[2022-07-14 10:01] LABS: ALT 74 U/L (16-63); AST 33 U/L (15-37); Albumin 3.9 g/dL (3.4-5.0); Alkaline Phosphatase 103 U/L (46-116); Anion Gap 6.8 mmol/L (3-11); BUN 21 mg/dL (7-18); Bilirubin, Total 0.7 mg/dL (0.2-1.0); CO2 30.2 mmol/L (21.0-32.0); CREATININE 1.3 mg/dL (0.70-1.30); Calcium 9.2 mg/dL (8.5-10.1); Chloride 104 mmol/L (98-107); Estimated GFR 57.65 (mL/min/1.73m2); Glucose 95 mg/dL (74-106); Potassium 4.4 mmol/L (3.5-5.1); Sodium 141 mmol/L (136-145)
--- NOTE | 2022-07-14 11:00 | DI.CT_ITS ---
Exam(s) CT CHEST/ABD/PEL W EXAM: CT CHEST/ABD/PEL W CLINICAL HISTORY: RECTAL CA, C20, MONITOR POST PRIMARY/ADJUVANT TREATMENT. TECHNIQUE: Imaging Protocol: Axial computed tomography images with coronal and sagittal reformatted images were created and reviewed CONTRAST MATERIAL: Intravenous: Omnipaque 350 Contrast volume:100 ml Oral: yes / COMPARISON: CT CT CHEST/ABD/PELVIS W/CONTRAST from 10/16/[address] CHEST/ABD/PELVIS W/CONTRAST from 12/18/2021 FINDINGS: CHEST: Tracheobronchial tree: Patent where visualized. Pulmonary parenchyma: No consolidation or dominant measurable mass. Stable tiny medial left upper lo be nodule. Pleura: No effusion or pneumothorax. Lymph nodes: Within normal limits. Aorta: Thoracic portion non-dilated. Heart: Biatrial enlargement. Coronary artery calcifications. 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 No pericardial effusion. Bones: Sternal wires. Unremarkable for age. No lytic or blastic lesions.Stable mild T11 compression fracture. Degenerative changes. ABDOMEN: Liver: Normal density. No measurable mass. Gallbladder and biliary tract: No radiodense calculus or dilation. Pancreas: Normal density, no abnormal calcifications or inflammatory process. Spleen: Normal. Kidneys: Normal size, contour and axis. No radiodense stones or obstructive uropathy. Small bilatera l renal cysts. No suspicious masses seen. Adrenal glands: No masses seen. Aorta: Abdominal portion non-dilated. Atherosclerotic changes. Lymph nodes: Within normal limits. Soft tissues: State fatty containing hernia in the upper midline abdomen. Tiny right inguinal fatty containing hernia. PELVIS: Bladder: Symmetric distention, no gross wall thickening. Bowel: Exophytic low-density mass again noted in the left rectal wall measurements now 2.1 x 1.5 cm. Sigmoid diverticulosis. No evidence of diverticulitis. No obstruction or bowel wall thickening. Appendix normal. Peritoneal cavity: No ascites, collection or mesenteric inflammatory response. Bones: Unremarkable for age.. Reproductive organs: Status post prostatectomy. IMPRESSION: Interval decrease in size of mass versus fluid collection at the left lateral rectal wall. No evidence of adenopathy or metastatic disease in the chest abdomen or pelvis. RADIATION DOSE DELIVERED: 2,155.03mGy.cm Total DLP DATA REPOSITORY: All CT scans at this facility are submitted to the National Radiology Data Registry (NRDR) Dose Index Registry (DIR) with the [employer] (A[employer]). RADIATION OPTIMIZATION: All CT scans at this facility use at least one of these dose optimization te chniques: automated exposure control; mA and/or kV adjustment per patient size (includes targeted exa ms where dose is matched to clinical indication); or iterative reconstruction.
[2022-07-14] MEDS: Omnipaque 350 MG/ML 500 ML BTL-Imaging package IJ (11:07)
[2022-07-14 18:31] LABS: CEA <0.5 ng/mL (See Note)
== END 2022-07-14 01:45 ==
LOC: DI 01:26
PROVIDERS: PCP Neuromusculoskeletal Medicine & OMM; Visit Provider Nurse Practitioner Family
DX: C20 Malignant neoplasm of rectum (principal)
CPT/HCPCS: 36415; 74177; 80053; 71260; 82378; 85025

== ENCOUNTER → 2023-02-06 01:00 | Outpatient (CLI) | payer MEDICARE, SELFPAY ==
--- NOTE | 2023-02-06 | DI.CT_ITS ---
Exam(s) CT CHEST/ABD/PEL W EXAM: CT CHEST/ABD/PEL W CLINICAL HISTORY: rectal ca,s/p radiation and chemo,restaging exam,c20 TECHNIQUE: Imaging Protocol: Axial computed tomography images with coronal and sagittal reformatted images were created and reviewed CONTRAST MATERIAL: Intravenous: Omnipaque 350 contrast volume:100 mL Oral: Yes COMPARISON: CT CT CHEST/ABD/PELVIS W/CONTRAST from 10/16/[address] CHEST/ABD/PEL W from 07/14/2022 FINDINGS: CHEST: Tracheobronchial tree: Patent where visualized. Pulmonary parenchyma: No consolidation or dominant measurable mass. No architectural distortion. Visualized thyroid gland: Unremarkable. Mediastinum and Vika: No dominant adenopathy or fluid collection. The esophagus is unremarkable. Pleura: No effusion or pneumothorax. Heart: Cardiomegaly. Coronary artery calcifications. Status post CABG. No pericardial effusion. Pulmonary arteries: No pulmonary emboli are identified. Aorta: Thoracic aorta non-dilated. Atherosclerosis. No evidence of dissection. Lymph nodes: Within normal limits. Soft tissues: Unremarkable. Bones:Within normal limits for the patient's age. Sternal wires are in place. No aggressive osseous lesions are present. Chronic anterior wedging of T11 is noted. ABDOMEN: Liver: Normal density. No measurable mass. Portal, Superior Mesenteric, and Splenic Veins: Unremarkable. Gallbladder and Biliary Tract: Cholelithiasis. No biliary ductal dilatation. Pancreas: Normal density, no abnormal calcifications or inflammatory process. Spleen: Normal. Adrenals: No masses seen. Kidneys: Normal size, contour and axis. No radiodense stones or obstructive uropathy. Stable renal cy sts. No follow-up is recommended. Abdominal Aorta: Abdominal portion non-dilated. Atherosclerosis. Bowel: The soft tissue mass along the left lateral rectal wall now measures 1.8 x 1.0 cm compared wit h 2.1 x 1.5 cm on the prior examination. There is diverticulosis of the colon but no evidence of acu te diverticulitis. No evidence of bowel obstruction. The small bowel is unremarkable. There is no evidence of appendicitis. Peritoneal Cavity: No ascites, collection or mesenteric inflammatory response. No free air. Lymph Nodes: Within normal limits. Bones: Within normal limits for the patient's age. No aggressive osseous lesions are identified. Soft Tissues: There is a fat containing midline anterior abdominal wall hernia. PELVIS: Bladder: There is thickening of the wall of the urinary bladder. The bladder is incompletely distend ed. Reproductive Organs: The prostate gland is not visualized. Lymph Nodes: Within normal limits. Bones: Within normal limits. IMPRESSION: 1. Interval decrease in size if the mass along the left lateral rectal wall since 07/14/2022. 2. No evidence of thoracic, abdominal or pelvic metastatic disease. 3. Thickening of the wall of the urinary bladder. Differential considerations include cystitis or ne oplasm. Apparent wall thickening secondary to underdistention should also be included. RADIATION DOSE DELIVERED: Total DLP DATA REPOSITORY: All CT scans at this facility are submitted to the National Radiology Data Registry (NRDR) Dose Index Registry (DIR) with the [employer] (ACR). RADIATION OPTIMIZATION: All CT scans at this facility use at least one of these dose optimization te chniques: automated exposure control; mA and/or kV adjustment per patient size (includes targeted exa ms where dose is matched to clinical indication); or iterative reconstruction.
[2023-02-06 08:25] LABS: Abs Immature Grans 0.02 10^3/uL (0.0-0.06); Absolute Basophil Count 0.03 10^3/uL (0.0-0.2); Absolute Eosinophil Count 0.31 10^3/uL (0.0-0.7); Absolute Lymphocyte Count 1.07 10^3/uL (1.2-3.4); Absolute Monocyte Count 0.82 10^3/uL (0.1-0.8); Absolute Neutrophil Count 3.79 10^3/uL (1.2-6.7); Basophils % 0.5; Eosinophils % 5.1; HCT 46.4 % (40.0-50.0); HGB 15.5 g/dL (13.5-17.5); Immature Grans % 0.3; Lymphocytes % 17.7; MCH 29.4 pg (27.0-33.0); MCHC 33.4 % (32.0-36.0); MCV 88 fL (80-95); Monocytes % 13.6; Neutrophils % 62.8; Platelet Count 238 10^3/uL (130-400); RBC 5.28 10^6/uL (4.36-5.78); RDW-SD 45.2 fL; WBC 6.04 10^3/uL (4.4-10.8)
[2023-02-06] MEDS: Barium Sulfate 2% W/V-Berry Smoothie 450 ML BTL PO (08:40)
[2023-02-06 08:48] LABS: ALT 33 U/L (16-63); AST 19 U/L (15-37); Albumin 3.2 g/dL (3.4-5.0); Alkaline Phosphatase 111 U/L (46-116); BUN 13 mg/dL (7-18); Bilirubin, Total 0.7 mg/dL (0.2-1.0); Chloride 106 mmol/L (98-107); Estimated GFR 78.98 (mL/min/1.73m2); Glucose 94 mg/dL (74-106); Sodium 142 mmol/L (136-145); Total Protein 6.9 g/dL (6.4-8.2)
[2023-02-06] MEDS: Normal Saline Flush 10 ML SYR IVP (10:24)
[2023-02-06] MEDS: Omnipaque 350 MG/ML 500 ML BTL-Imaging package 100 ML IJ (10:24)
[2023-02-06] MEDS: Normal Saline - Diluent 50 ML VIAL IJ (10:24)
[2023-02-06 21:15] LABS: CEA 0.5 ng/mL (See Note)
== END ==
PROVIDERS: PCP Neuromusculoskeletal Medicine & OMM; Visit Provider Internal Medicine Hematology & Oncology
DX: C20 Malignant neoplasm of rectum (principal); N32.89 Other specified disorders of bladder
CPT/HCPCS: 74177; 80053; 71260; 82378; 85025

== ENCOUNTER → 2023-08-10 03:08 | Outpatient (CLI) | payer MEDICARE, SELFPAY ==
--- NOTE | 2023-08-10 | DI.CT_ITS ---
Exam(s) CT CHEST/ABD/PEL W EXAM: CT CHEST/ABD/PEL W CLINICAL HISTORY: C20 Rectal CA, Assess treatment response TECHNIQUE: Imaging Protocol: Axial computed tomography images with coronal and sagittal reformatted images were created and reviewed CONTRAST MATERIAL: Intravenous: Omnipaque 350 contrast volume:100 mL Oral: Yes COMPARISON: CT CT CHEST/ABD/PELVIS W/CONTRAST from 10/16/[address] CHEST/ABD/PELVIS W/CONTRAST from 04/04/[address] CHEST/ABD/PEL W from 07/14/[address] CHEST/ABD/PEL W from 02/06/2023 FINDINGS: CHEST: Tracheobronchial tree: Patent where visualized. Pulmonary parenchyma: No consolidation or dominant measurable mass. No architectural distortion. Visualized thyroid gland: Unremarkable. Mediastinum and Vika: No dominant adenopathy or fluid collection. The esophagus is unremarkable. Pleura: No effusion or pneumothorax. Heart: Mildly enlarged. Coronary artery calcifications are present. Status post CABG. No pericardi al effusion. Pulmonary arteries: No pulmonary emboli are identified. Aorta: Thoracic aorta non-dilated. No evidence of dissection. Atherosclerotic calcification is prese nt. Lymph nodes: Within normal limits. Soft tissues: Bilateral gynecomastia. Bones:Within normal limits for the patient's age. Sternal wires are in place. No aggressive osseous lesions are present. ABDOMEN: Liver: Normal density. No measurable mass. Portal, Superior Mesenteric, and Splenic Veins: Unremarkable. Gallbladder and Biliary Tract: Cholelithiasis. No biliary ductal dilatation. Pancreas: Normal density, no abnormal calcifications or inflammatory process. Spleen: Normal. Adrenals: No masses seen. Kidneys: Normal size, contour and axis. No radiodense stones or obstructive uropathy. Bilateral renal cysts. No follow-up is recommended. Abdominal Aorta: Abdominal portion non-dilated. Atherosclerotic calcification is present. Bowel: The rectal mass again shows decrease in size currently measuring 1.4 x 0.8 cm (series 7, image 708). This compares to 1.8 x 1.1 cm on the prior examination. There is diverticulosis of the colon but no evidence of acute diverticulitis. No other evidence of bowel wall thickening or bowel obstru ction is seen. The stomach is incompletely distended limiting evaluation. Appendix is unremarkable. Peritoneal Cavity: No ascites, collection or mesenteric inflammatory response. No free air. Lymph Nodes: Within normal limits. Bones: Within normal limits for the patient's age. Old healed fracture deformities of the right supe rior and inferior pubic rami are noted. No aggressive osseous lesions are present. Soft Tissues: Fat containing anterior abdominal wall hernias noted. There is a fat containing right inguinal hernia. PELVIS: Bladder: The urinary bladder is incompletely distended. There is diffuse thickening of the wall of t he bladder. Reproductive Organs: The prostate gland is not visualized. Lymph Nodes: Within normal limits. Bones: Within normal limits. IMPRESSION: 1. Continued decrease in size of the perirectal mass which now measures 1.4 x 0.8 cm. This compares to 1.8 x 1.1 cm on the prior examination. 2. No evidence of thoracic metastatic disease. 3. Diffuse thickening of the wall of the urinary bladder. This may be post therapeutic, underdistent ion, related to chronic bladder outlet obstruction or cystitis. Please correlate clinically. RADIATION DOSE DELIVERED: 2,007.23mGy.cm Total DLP DATA REPOSITORY: All CT scans at this facility are submitted to the National Radiology Data Registry (NRDR) Dose Index Registry (DIR) with the [employer] (A[employer]). RADIATION OPTIMIZATION: All CT scans at this facility use at least one of these dose optimization te chniques: automated exposure control; mA and/or kV adjustment per patient size (includes targeted exa ms where dose is matched to clinical indication); or iterative reconstruction.
[2023-08-10] MEDS: Barium Sulfate 2% W/V-Berry Smoothie 450 ML BTL PO ×2 (08:34→08:36)
[2023-08-10] MEDS: Normal Saline - Diluent 50 ML VIAL IJ (11:15)
[2023-08-10] MEDS: Omnipaque 350 MG/ML 100 ML BTL IJ (11:16)
== END ==
PROVIDERS: PCP Neuromusculoskeletal Medicine & OMM; Visit Provider Nurse Practitioner Family
DX: C20 Malignant neoplasm of rectum (principal)
CPT/HCPCS: 74177; 80053; 71260; 82378; 85025; J3490